=== PATIENT | male | born 1950 | race Asian ===

== ENCOUNTER 2016-07-01 13:20 | Day surgery (SDC) | payer OTHER ==
[~2016-07-01] VITALS: Ht 172.7 cm; Wt 83.7 kg
[~2016-07-01 13:20] MED LIST: BLVX50T; BUSP5TAB20; IBUP-1542 PO; LANS15CA19; LISI30TA PO; LORA-408; LOSA100T47 PO; PEN500 PO; QUET25TA26
[2016-07-01 14:40] VITALS: Ht 172.7 cm; Wt 83.7 kg
[2016-07-01 15:00] VITALS: BP 107/61; PULSE 69; RESP 12
[2016-07-01] MEDS ORDERED: BUSP15TA3 PO (15:03)
[2016-07-01] MEDS ORDERED: LOSA1TAB9 PO (15:03)
[2016-07-01] MEDS ORDERED: DIPHENHYDRAMINE 50 MG INJ ONE (15:07)
[2016-07-01] MEDS ORDERED: LIDOCAINE 4% SOLUTION 50 ML BTL ONE (15:08)
[2016-07-01] MEDS ORDERED: MIDAZOLAM 1 MG/ML 2 ML INJ ONE ×2 (16:07)
[2016-07-01] MEDS ORDERED: FENTAnyl 50 MCG/ML VIAL ONE (16:08)
[2016-07-01 16:30] VITALS: BP 108/66; PULSE 65; RESP 18
--- NOTE | 2016-07-02 09:19 | GILP ---
DATE OF PROCEDURE: PREOPERATIVE DIAGNOSIS: Gastroesophageal reflux disease. PROCEDURE DONE: Esophagogastroduodenoscopy and biopsy of the distal esophagus and antrum. POSTOPERATIVE DIAGNOSES: 1. Distal esophagitis at 36 cm. 2. A 3 cm sliding hiatus hernia. 3. Antral erosions. DESCRIPTION OF PROCEDURE: The patient was put in left lateral decubitus after obtaining informed co nsent. After anesthetizing the posterior pharynx with 4% Xylocaine, I sedated the patient with 2 mg IV Versed, 50 mcg of fentanyl, and advanced an Olympus video upper endoscope into the esophagus, st omach and duodenum. Distal esophagitis was noted. This was photographed. A 3 cm hiatus hernia was noted. Biopsy of the distal esophagus also done. In the stomach there was antral erosions. Fundu s was unremarkable except for hiatus hernia. Body of the stomach normal. Biopsy randomly done in t he stomach to rule out H. pylori. Duodenal bulb easily traversed through the pylorus and duodenum, examined up to second part normal. Upon removal of the scope, patient had no complication. PLAN: Plan will be to await for biopsy report and follow up as outpatient in 2 weeks. Dictated By: PRASANNA LAMA Conf#: [id number] DID#: [id number] CC: Dr. Nakul Urbina;*EndCC*
--- NOTE | 2016-07-02 09:26 | GILP ---
DATE OF PROCEDURE: PREOPERATIVE DIAGNOSIS: Change in bowel habits. PROCEDURE DONE: Colonoscopy. POSTOPERATIVE DIAGNOSIS: 1. Very tortuous colon. 2. The sigmoid colon lays onto the right side. 3. Occasional diverticula but no diverticulitis. 4. Internal hemorrhoids grade II. DESCRIPTION OF PROCEDURE: The patient was put in left lateral decubitus, after EGD. Further sedati on monitoring done, 2 mg IV Versed, 50 mcg of fentanyl given. Advanced Olympus video colonoscope wi th some difficulty into the right colon and cecum. Due to very tortuous sigmoid colon which lays on to the right side than the left side and looping occurred, but this was straightened out. Examinat ion of cecum, ascending colon, transverse colon normal. Descending colon normal, but in the sigmoid colon, very tortuous and rectum unremarkable except for internal hemorrhoids, grade II. Upon remov al of the scope, patient had no complication. No active diverticulitis or diverticular stricture no t seen here. Recommend if he continues to a change in bowel habits, barium enema. Otherwise followup in 2 weeks and again repeat colonoscopy maybe in 5 to 10 years. Dictated By: PRASANNA LAMA Conf#: [id number] DID#: [id number] CC: Nakul Urbina MD;*EndCC*
== END 2016-07-01 16:13 | disposition home or self-care (01) ==
LOC: GIL 13:20
PROVIDERS: ATTEND Internal Medicine
DX: K21.0 Gastro-esophageal reflux disease with esophagitis (principal); K57.90 Diverticulosis of intestine, part unspecified, without perforation or abscess without bleeding; K64.1 Second degree hemorrhoids; K44.9 Diaphragmatic hernia without obstruction or gangrene; I10 Essential (primary) hypertension; E78.5 Hyperlipidemia, unspecified
CPT/HCPCS: 43239; 45378; 88305; 88312; 88313; J2250; J3010; Z7610; J1200

== ENCOUNTER 2017-04-04 14:35 | Day surgery (SDC) | payer MEDICARE, OTHER ==
[~2017-04-04] VITALS: Ht 172.7 cm; Wt 74.7 kg
[~2017-04-04 14:35] MED LIST changes: +BUSP15TA3 PO; -BUSP5TAB20; -IBUP-1542 PO; -LISI30TA PO; -LORA-408; -LOSA100T47 PO; +LOSA1TAB9 PO; -PEN500 PO; -QUET25TA26
[2017-04-04] MEDS ORDERED: ARIP2TAB8 PO (15:17)
[2017-04-04] MEDS ORDERED: RANI75TA13 PO (15:17)
[2017-04-04 15:20] VITALS: Ht 172.7 cm; Wt 74.7 kg
[2017-04-04] MEDS ORDERED: LIDOCAINE 4% SOLUTION 50 ML BTL ONE (15:53)
[2017-04-04 15:58] VITALS: BP 114/76; PULSE 74; RESP 12
--- NOTE | 2017-04-04 16:14 | OPPN ---
Date/Time of Note Date/Time of Note DATE: 04/04/17 TIME: 16:12 DICTATED Operative Report Preoperative Diagnosis GERD Postoperative Diagnosis MILD ESOPHAGITIS GASTRITIS Operation/Procedure Performed EGD BX/BX Surgeon see signature line assistant at surgery NONE Anesthesia: moderate sedation (VERSED 3MG/FENTANYL 75MCG/MODERATE SEDATION TIME 10 MTS) Estimated blood loss: none Transfusion Required none Specimen GASTRIC BX/GEJ BX Grafts/Implants none Complications none PRASANNA CRAMER MD Apr 04, 2017 16:14
--- NOTE | 2017-04-04 16:14 | OPPN ---
Date/Time of Note Date/Time of Note DATE: 04/04/17 TIME: 16:12 DICTATED Operative Report Preoperative Diagnosis GERD Postoperative Diagnosis MILD ESOPHAGITIS GASTRITIS Operation/Procedure Performed EGD BX/BX Surgeon see signature line respiratory care assistant NONE Anesthesia: moderate sedation (VERSED 3MG/FENTANYL 75MCG/MODERATE SEDATION TIME 10 MTS) Estimated blood loss: none Transfusion Required none Specimen GASTRIC BX/GEJ BX Grafts/Implants none Complications none PRASANNA CRAMER MD Apr 04, 2017 16:14
--- NOTE | 2017-04-04 16:14 | OPPN ---
Date/Time of Note Date/Time of Note DATE: 04/04/17 TIME: 16:12 DICTATED Operative Report Preoperative Diagnosis GERD Postoperative Diagnosis MILD ESOPHAGITIS GASTRITIS Operation/Procedure Performed EGD BX/BX Surgeon see signature line employment assistant NONE Anesthesia: moderate sedation (VERSED 3MG/FENTANYL 75MCG/MODERATE SEDATION TIME 10 MTS) Estimated blood loss: none Transfusion Required none Specimen GASTRIC BX/GEJ BX Grafts/Implants none Complications none PRASANNA CRAMER MD Apr 04, 2017 16:14
[2017-04-04] MEDS ORDERED: MIDAZOLAM 1 MG/ML 2 ML INJ ONE ×2 (16:23→16:24)
[2017-04-04] MEDS ORDERED: FENTAnyl 50 MCG/ML VIAL ONE (16:24)
[2017-04-04 16:54] VITALS: BP 99/62; RESP 14
--- NOTE | 2017-04-07 08:22 | GILP ---
DATE OF PROCEDURE: PREOPERATIVE DIAGNOSIS: This patient continues to have gastroesophageal reflux symptoms in spite of therapy. Thus, he was brought for further evaluation. PROCEDURE DONE: Esophagogastroduodenoscopy and biopsy of the distal esophagus at GE junction and al so biopsy of the stomach for gastric erosion and gastritis. POSTOPERATIVE DIAGNOSIS: Gastritis in the antrum and gastric erosions in the body of the stomach, g rade II esophagitis at the gastroesophageal junction, small hiatus hernia about 3 cm in size. DESCRIPTION OF PROCEDURE: The patient was put in left lateral decubitus after obtaining informed co nsent. He was sedated, monitored, and also gargling of 4% Xylocaine. He received 3 mg IV Versed, 7 5 mcg of fentanyl IV. Very carefully advanced Olympus video upper endoscope into the esophagus, stomach and duodenum up to second part. The duodenum is normal. In the stomach, there was antral gastritis. There were some erosions in the gastric body. A photograph we had done, biopsies were done. By retroflexion the h iatus hernia was also noted. By antegrade exam of the distal esophagus demonstrated grade II esopha gitis, small erosions and so I took 2 biopsies from this area of the GE junction at 38 cm. The hiat us hernia was again recognized, sliding type, about 3 cm in size. The rest of the esophagus unremar kable. The scope was withdrawn. Patient had no complication. RECOMMENDATION: Continue PPI. Await for biopsy report. Follow up as outpatient. Consider 24-hour pH monitoring and esophageal motility manometry study. If he continues to have sym ptoms, consider surgical options. Dictated By: PRASANNA LAMA Conf#: [id number] DID#: [id number]
== END 2017-04-04 19:32 | disposition home or self-care (01) ==
LOC: GIL 14:35
PROVIDERS: ATTEND Internal Medicine
DX: K21.0 Gastro-esophageal reflux disease with esophagitis (principal); K44.9 Diaphragmatic hernia without obstruction or gangrene; K29.70 Gastritis, unspecified, without bleeding; I10 Essential (primary) hypertension; Z86.010 Personal history of colon polyps
CPT/HCPCS: 43239; 88305; 88312; 88313; J2250; J3010